=== PATIENT | female | born 1985 | race Caucasian/White ===

== ENCOUNTER → 2021-12-24 | Outpatient (CLI) | payer OTHER ==
[~2021-12-24] VITALS: Ht 165.1 cm; Wt 63.0 kg
[~2021-12-24] MED LIST: PRENATAL CAPLE1 EAC1
== END | disposition home or self-care (01) ==
LOC: OBS/DEL 21:30
PROVIDERS: ATTEND Obstetrics & Gynecology
DX: O26.893 Other specified pregnancy related conditions, third trimester (principal); Z3A.29 29 weeks gestation of pregnancy